=== PATIENT | female | born 1980 | race Asian ===

== ENCOUNTER 2018-03-04 21:58 | Emergency (ER) | payer OTHER ==
[~2018-03-04] VITALS: Ht 157.5 cm; Wt 45.4 kg
[2018-03-04] MEDS ORDERED: Piperacillin/Tazobactam 3.375 GM in NS 110 ML IVPB ONE (22:15)
--- NOTE | 2018-03-04 22:15 | NUR ---
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
[2018-03-04] MEDS ORDERED: AUGMENTIN 875-1 EAC1 ORAL (22:29)
--- NOTE | 2018-03-04 22:29 | Emergency Room Report ---
History of Present Illness General Chief Complaint: Animal Bite Source: Patient Present Illness HPI Is a 37 year female who is right-hand dominant. She presents with chief complaint of cat bite to the right hand. This occurred at work at 4 PM. Now is red and swollen. No fever chills but no nausea no vomiting. Tetanus up-to- date. Denies any other complaint. Worse with palpation. No joint pain. Allergies: Coded Allergies: No Known Allergies (Unverified , 03/04/18) Patient History Past Medical History: see triage record, old chart reviewed Past Surgical History: none Pertinent Family History: none Social History: Denies: smoking Last Menstrual Period: 01/2018 Now: No : 0 Para: 0 Immunizations: UTD Reviewed Nursing Documentation: PMH: Agreed; PSxH: Agreed Nursing Documentation-PMH Past Medical History: No Stated History Review of Systems Eye: Denies: eye pain, blurred vision ENT: Denies: ear pain, nose congestion, throat swelling Respiratory: Denies: cough, shortness of breath Cardiovascular: Denies: chest pain, palpitations Gastrointestinal: Denies: abdominal pain, diarrhea, nausea, vomiting Musculoskeletal: Reports: muscle pain; Denies: back pain, joint pain Skin: Denies: rash Neurological: Denies: headache, numbness Endocrine: Denies: increased thirst, increased urine Hematologic/Lymphatic: Denies: easy bruising All Other Systems: negative except mentioned in HPI Physical Exam Vital Signs Date Time Temp Pulse Resp B/P (MAP) Pulse Ox O2 Delivery O2 Flow Rate FiO2 03/04/18 22:04 98.1 77 16 155/103 99 Room Air vitals with high blood pressure Sp02 EP Interpretation: reviewed, normal General Appearance: well appearing, no apparent distress, alert Head: normocephalic, atraumatic Eyes: bilateral eye PERRL, bilateral eye EOMI ENT: hearing grossly normal, normal pharynx Neck: full range of motion, supple, no meningismus Respiratory: chest non-tender, lungs clear, normal breath sounds Cardiovascular #1: regular rate, rhythm, no murmur Gastrointestinal: normal bowel sounds, non tender, no mass, no organomegaly, no bruit, non-distended Musculoskeletal: back normal, gait/station normal, normal range of motion, other - Right hand with a puncture jimmy on the dorsum of the right hand. There is surrounding erythema and mild edema of 3-4 cm. No crepitance. Full range motion of the wrist and the MCP joints. Neurologic: alert, oriented x3 Psychiatric: mood/affect normal Skin: warm/dry Medical Decision Making Diagnostic Impression: Primary Impression: Cat bite of hand Qualified Codes: S61.451A - Open bite of right hand, initial encounter; W55.01XA - Bitten by cat, initial encounter ER Course Patient with a cat bite to the hand with cellulitis already. I see no evidence of necrotizing fasciitis or septic joint. Explained to the patient that this thing worsen she may need admission and IV antibiotics. Possible surgery. I gave her a dose of Zosyn here. We'll discharge home on antibiotics and close follow-up. Last Vital Signs Date Time Temp Pulse Resp B/P (MAP) Pulse Ox O2 Delivery O2 Flow Rate FiO2 03/04/18 22:04 98.1 77 16 155/103 99 Room Air Status: improved Disposition: HOME, SELF-CARE Condition: Stable Scripts Amoxicillin/Potassium Clav 875-125* (AUGMENTIN 875-125 TABLET*) 1 Each Tablet 1 TAB ORAL TWICE A DAY, #14 TAB Prov: Dallin Allen MD 03/04/18 Additional Instructions: Follow-up with your doctor tomorrow for recheck. If symptom worsen, you may need admission for IV antibiotics and possible surgery. Return if symptom worsen. Dallin Allen MD Mar 04, 2018 22:29
[2018-03-04] MEDS ORDERED: IBUPROFEN600 MG ORAL (22:32)
[2018-03-04 23:15] VITALS: BP 136/81
--- NOTE | 2018-03-04 23:15 | NUR ---
ED Nurse Note: pt being d/c to home, completed iv antibiotic, no s/s of adverse reactiono noted, iv site patent, pt medicated for pain, meds given effective also, pt being d/c to home, given f/u nikita, after care instructions and re-verbalizes proper medication administration, nad noted during d/c to home.
[2018-03-04 23:53] VITALS: BP 136/81
== END 2018-03-04 23:54 | disposition home or self-care (01) ==
LOC: EMR 22:21
DX: S61.451A Open bite of right hand, initial encounter (principal); Y99.0 Civilian activity done for income or pay; L03.113 Cellulitis of right upper limb; W55.01XA Bitten by cat, initial encounter; Y92.89 Other specified places as the place of occurrence of the external cause
CPT/HCPCS: 96365; 99284; J2543

== ENCOUNTER 2018-03-06 15:40 | Emergency (ER) | payer OTHER ==
[~2018-03-06] VITALS: Ht 157.5 cm; Wt 45.4 kg
[~2018-03-06 15:40] MED LIST: AUGMENTIN 875-1 EAC1 ORAL; IBUPROFEN600 MG ORAL
[2018-03-06 16:20] VITALS: BP 136/93
--- NOTE | 2018-03-06 16:35 | Emergency Room Report ---
History of Present Illness General Chief Complaint: Animal Bite Source: Patient Present Illness HPI left without being seen Allergies: Coded Allergies: No Known Allergies (Unverified , 03/04/18) Patient History Last Menstrual Period: 12/06/17 Now: No Nursing Documentation-[facility] Past Medical History: No Stated History Physical Exam Vital Signs Date Time Temp Pulse Resp B/P (MAP) Pulse Ox O2 Delivery O2 Flow Rate FiO2 03/06/18 15:45 97.9 76 16 136/93 99 Room Air Medical Decision Making PA Attestation Dr. Laboy is my supervising Physician whom patient management has been discussed with. ER Course This patient left prior to evaluation by medical provider. Last Vital Signs Date Time Temp Pulse Resp B/P (MAP) Pulse Ox O2 Delivery O2 Flow Rate FiO2 03/06/18 15:45 97.9 76 16 136/93 99 Room Air Disposition: LEFT W/OUT BEING SEEN Condition: Unknown Jessica Jon Mar 06, 2018 16:35
[2018-03-06] MEDS ORDERED: DOXYCYCLINE MO100 MG ORAL (23:04)
== END 2018-03-06 16:20 | disposition left against medical advice (07) ==
LOC: EMR 15:57
DX: Z53.21 Procedure and treatment not carried out due to patient leaving prior to being seen by health care provider (principal)

== ENCOUNTER 2018-03-06 19:12 | Emergency (ER) | payer OTHER ==
[~2018-03-06] VITALS: Ht 157.5 cm; Wt 45.4 kg
[2018-03-06 20:50] VITALS: BP 131/94
--- NOTE | 2018-03-06 20:56 | NUR ---
ED Nurse Note: PT RETURNED TO ED AFTER LEAVING WITHOUT BEING SEEN AT 1620. PT IS STILL C/O OF CAT BIT ON THE RIGHT HAND AND WILL. TOLD TO FOLLOW UP BY DR SAEZ
[2018-03-06] MEDS ORDERED: Piperacillin/Tazobactam 3.375 GM in NS 110 ML IVPB ONE (21:30)
[2018-03-06 21:47] LABS: APPEARANCE,URINE CLEAR; BILIRUBIN, URINE NEGATIVE (NEGATIVE); GLUCOSE, URINE (UA) 2+ (NEGATIVE); KETONES,URINE 1+ (NEGATIVE); LEUKOCYTE ESTERASE ,URINE 1+ (NEGATIVE); NITRITE,URINE NEGATIVE (NEGATIVE); PH,URINE 6 (4.5-8.0); PROTEIN,URINE NEGATIVE (NEGATIVE); UROBILINOGEN,URINE 1 MG/DL (0.0-1.0)
[2018-03-06 21:50] LABS: COLOR,URINE YELLOW
[2018-03-06 21:54] LABS: ANION GAP 13 mmol/L (5-15); BLOOD UREA NITROGEN 5 mg/dL (7-18); CALCIUM 9.5 MG/DL (8.5-10.1); CARBON DIOXIDE 26 MMOL/L (21-32); CHLORIDE 103 MMOL/L (98-107); CREATININE 0.6 MG/DL (0.55-1.30); POTASSIUM 3.3 MMOL/L (3.5-5.1); SODIUM 142 MMOL/L (136-145)
[2018-03-06 21:55] LABS: BASOPHILS % (AUTO) 0.9 % (0.0-2.0); HEMATOCRIT 39.5 % (37.0-47.0); HEMOGLOBIN 13.8 G/DL (12.0-16.0); LYMPHOCYTES % (AUTO) 33.1 % (20.0-45.0); MEAN CORPUSCULAR VOLUME 102 FL (80-99); MONOCYTES % (AUTO) 6.8 % (1.0-10.0); NEUTROPHILS % (AUTO) 56.3 % (45.0-75.0); PLATELET COUNT 303 K/UL (150-450); RED BLOOD COUNT 3.88 M/UL (4.20-5.40); RED CELL DISTRIBUTION WIDTH 11.7 % (11.6-14.8); WHITE BLOOD COUNT 4.3 K/UL (4.8-10.8)
[2018-03-06 22:11] LABS: ALANINE AMINOTRANSFERASE 28 U/L (12-78); ALBUMIN 4.4 G/DL (3.4-5.0); ALBUMIN/GLOBULIN RATIO 1.2 (1.0-2.7); ALKALINE PHOSPHATASE 99 U/L (46-116); ASPARTATE AMINO TRANSFERASE 36 U/L (15-37); BILIRUBIN,TOTAL 1.8 MG/DL (0.2-1.0)
[2018-03-06 22:14] LABS: BILIRUBIN,DIRECT 0.3 MG/DL (0.0-0.3)
--- NOTE | 2018-03-06 22:52 | Emergency Room Report ---
History of Present Illness General Chief Complaint: Animal Bite Source: Patient Present Illness HPI Patient is a 33-year-old female who presented after a recent Bite. Patient reportedly had bite to her right hand at work. 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 She is right-hand dominant. Patient had recently been seen and was started on IV antibiotics and given prescription for Augmentin. Patient had taken 3 doses. She subsequently had noticed continued swelling. Patient presented for a wound check. She was having some increased discomfort to her hand as well as difficulty with flexing her fingers. She denies any fever. Allergies: Coded Allergies: No Known Allergies (Unverified , 03/04/18) Patient History Past Medical History: see triage record Last Menstrual Period: 01/29/18 Now: No Reviewed Nursing Documentation: PMH: Agreed; PSxH: Agreed Nursing Documentation-PMH Past Medical History: No Stated History Review of Systems All Other Systems: negative except mentioned in HPI Physical Exam Vital Signs Date Time Temp Pulse Resp B/P (MAP) Pulse Ox O2 Delivery O2 Flow Rate FiO2 03/06/18 19:18 98.2 90 16 135/96 98 Room Air Sp02 EP Interpretation: reviewed, normal General Appearance: normal inspection, well appearing, no apparent distress, alert, GCS 15, non-toxic, thin Head: atraumatic ENT: normal ENT inspection, hearing grossly normal, normal voice Neck: normal inspection, full range of motion, supple, no bony tend Respiratory: normal inspection, lungs clear, normal breath sounds, no respiratory distress, no retraction, no wheezing Cardiovascular #1: regular rate, rhythm, no edema Gastrointestinal: normal inspection, normal bowel sounds, non tender, soft, no guarding, no hernia Genitourinary: no CVA tenderness Musculoskeletal: normal inspection, back normal, normal range of motion Neurologic: normal inspection, alert, responsive, speech normal Psychiatric: normal inspection, judgement/insight normal, mood/affect normal Skin: no rash, other - soft tissue swelling to dorsum of hand Medical Decision Making Diagnostic Impression: Primary Impression: Infected hand ER Course Patient presented for increased hand swelling. Differential diagnosis include was not limited to cellulitis, deep space infection, abscess, lymphangitis among others. Because of complexity of patient's case laboratory testing and imaging studies were ordered. Patient was noted to have a slightly low white blood count. Patient was noted to have a worsening of symptoms while taking antibiotics. She was noted to have a low white blood count as well as an elevated lactic acid level. Patient was started on IV fluids and given IV Zosyn. Patient was advised of need for admission due to likely worsening infection. The patient was advised risk benefits alternatives of leaving AGAINST MEDICAL ADVICE and she indicated understanding and all questions are answered patient still continued want to leave and signed AGAINST MEDICAL ADVICE. Despite risks including but not limited to , disability and worsening of current lifestyle.Patient was advised she could return at any time. Patient's hand appears to be significantly more swollen than the original visit. Patient was advised to keep her hand elevated. She is given prescription for doxycycline. Patient was advised that she had some evidence of sepsis. Labs Test 03/06/18 21:29 03/06/18 21:35 White Blood Count 4.3 K/UL (4.8-10.8) Red Blood Count 3.88 M/UL (4.20-5.40) Hemoglobin 13.8 G/DL (12.0-16.0) Hematocrit 39.5 % (37.0-47.0) Mean Corpuscular Volume 102 FL (80-99) Mean Corpuscular Hemoglobin 35.6 PG (27.0-31.0) Mean Corpuscular Hemoglobin Concent 34.9 G/DL (32.0-36.0) Red Cell Distribution Width 11.7 % (11.6-14.8) Platelet Count 303 K/UL (150-450) Mean Platelet Volume 5.2 FL (6.5-10.1) Neutrophils (%) (Auto) 56.3 % (45.0-75.0) Lymphocytes (%) (Auto) 33.1 % (20.0-45.0) Monocytes (%) (Auto) 6.8 % (1.0-10.0) Eosinophils (%) (Auto) 3.0 % (0.0-3.0) Basophils (%) (Auto) 0.9 % (0.0-2.0) Sodium Level 142 MMOL/L (136-145) Potassium Level 3.3 MMOL/L (3.5-5.1) Chloride Level 103 MMOL/L (98-107) Carbon Dioxide Level 26 MMOL/L (21-32) Anion Gap 13 mmol/L (5-15) Blood Urea Nitrogen 5 mg/dL (7-18) Creatinine 0.6 MG/DL (0.55-1.30) Estimat Glomerular Filtration Rate > 60 mL/min (>60) Glucose Level 124 MG/DL (74-106) Lactic Acid Level 2.70 mmol/L (0.4-2.0) Calcium Level 9.5 MG/DL (8.5-10.1) Total Bilirubin 1.8 MG/DL (0.2-1.0) Direct Bilirubin 0.3 MG/DL (0.0-0.3) Aspartate Amino Transf (AST/SGOT) 36 U/L (15-37) Alanine Aminotransferase (ALT/SGPT) 28 U/L (12-78) Alkaline Phosphatase 99 U/L (46-116) Total Protein 8.2 G/DL (6.4-8.2) Albumin 4.4 G/DL (3.4-5.0) Globulin 3.8 g/dL Albumin/Globulin Ratio 1.2 (1.0-2.7) Urine Color Yellow Urine Appearance Clear Urine pH 6 (4.5-8.0) Urine Specific [place] 1.015 (1.005-1.035) Urine Protein Negative (NEGATIVE) Urine Glucose (UA) 2+ (NEGATIVE) Urine Ketones 1+ (NEGATIVE) Urine Blood Negative (NEGATIVE) Urine Nitrite Negative (NEGATIVE) Urine Bilirubin Negative (NEGATIVE) Urine Urobilinogen 1 MG/DL (0.0-1.0) Urine Leukocyte Esterase 1+ (NEGATIVE) Urine RBC 0-2 /HPF (0 - 2) Urine WBC 2-4 /HPF (0 - 2) Urine Squamous Epithelial Cells Few /LPF (NONE/OCC) Urine Bacteria Few /HPF (NONE) Last Vital Signs Date Time Temp Pulse Resp B/P (MAP) Pulse Ox O2 Delivery O2 Flow Rate FiO2 03/06/18 20:50 98.2 61 16 131/94 98 Room Air Status: improved Disposition: HOME, SELF-CARE Condition: Stable Scripts Doxycycline Monohydrate* (DOXYCYCLINE MONOHYDRATE*) 100 Mg Capsule 100 MG ORAL Q12H, #14 CAP 0 Refills Prov: Devin Laboy MD 03/06/18 Referrals: NOT CHOSEN IPA/,REFERRING (PCP) Devin Laboy MD Mar 06, 2018 22:52
[2018-03-06 23:01] VITALS: BP 130/62
[2018-03-06] MEDS ORDERED: DOXYCYCLINE MO100 MG ORAL (23:04)
[2018-03-06 23:30] VITALS: BP 130/62
--- NOTE | 2018-03-06 23:40 | NUR ---
ED Nurse Note: PT is medically cleared per ERMD order, as PT signed Againts medical advice. pt status condition and vital signs are reported to ERMD prior to DC. pt vital signs are stable. pt is alert and oriented times 4. pt left with all belongings, including DC ntoes and prescriptions. pt was able to teach back and understands DC notes and prescription. pt is instructed to follow up with primary MD as soon as possible, pt is instructed to return to ER if any variance in condition. ID band removed, and IV removed. pt is able to ambulate. pt is alert and oriented times 4. PT signed against medical advice and understand risk of doing so.
== END 2018-03-06 23:42 | disposition home or self-care (01) ==
LOC: EMR 21:42 → CANBEDREQ 23:32 → EMR 23:42
DX: L08.9 Local infection of the skin and subcutaneous tissue, unspecified (principal); S61.451A Open bite of right hand, initial encounter; W55.01XA Bitten by cat, initial encounter; Y92.69 Other specified industrial and construction area as the place of occurrence of the external cause; F17.200 Nicotine dependence, unspecified, uncomplicated; Z53.21 Procedure and treatment not carried out due to patient leaving prior to being seen by health care provider
CPT/HCPCS: 36415; 80053; 81001; 82248; 83605; 85025; 87040; 96361; 96365; 99284; J2543